=== PATIENT | male | born 1995 | race Caucasian/White ===

== ENCOUNTER 2023-03-30 11:48 | Emergency (ER) | payer MEDICAID ==
[~2023-03-30] VITALS: Ht 160 cm; Wt 92.1 kg
[2023-03-30 11:56] VITALS: BP_SYST 116
--- NOTE | 2023-03-30 11:59 | NUR ---
Patient to ER bed 03 to gown for evaluation. Side rails up.
[2023-03-30] MEDS ORDERED: AUG875 PO (12:00)
--- NOTE | 2023-03-30 12:00 | NUR ---
Pt brought by self, A&Ox4, pt presents to ER with persistent sore throat, states he took azithromycin for 3 days since he had some at home, skin pink and warm, cap refill <3, VSS.
[2023-03-30 12:04] VITALS: BP_SYST 116
--- NOTE | 2023-03-30 12:05 | NUR ---
Dr Torres evaluating patient at bedside
--- NOTE | 2023-03-30 12:06 | NUR ---
Patient given written and verbal discharge instructions and verbalizes understanding. ER MD discussed with patient the results and treatment provided. Patient in stable condition. ID arm band removed. Rx of Augmentin given. Patient educated on pain management and to follow up with PMD. Pain Scale 2/10 Opportunity for questions provided and answered. Medication side effect fact sheet provided.
== END 2023-03-30 12:06 | disposition home or self-care (01) ==
LOC: SED 11:48
DX: J02.9 Acute pharyngitis, unspecified (principal); R05.9 Cough, unspecified; R50.9 Fever, unspecified; Z79.899 Other long term (current) drug therapy
CPT/HCPCS: 99283

== ENCOUNTER 2023-09-08 09:28 | Emergency (ER) | payer MEDICAID ==
[~2023-09-08] VITALS: Ht 190.5 cm; Wt 83.9 kg
[2023-09-08 09:28] VITALS: BP_SYST 147; PULSE 75; RESP 18; TEMP 97.6; O2SAT 99
[~2023-09-08 09:28] MED LIST: AUG875 PO
[2023-09-08] MEDS ORDERED: IBUPROFEN 600 MG TABLET PO ONE (10:00)
[2023-09-08] MEDS ORDERED: TRAM50TA2 PO (10:32)
[2023-09-08] MEDS ORDERED: NAPR-688 PO (10:40)
[2023-09-08 11:04] VITALS: BP_SYST 124; PULSE 69; RESP 13; TEMP 97.6; O2SAT 100
== END 2023-09-08 11:03 | disposition home or self-care (01) ==
LOC: SED 09:28
DX: S39.012A Strain of muscle, fascia and tendon of lower back, initial encounter (principal); S16.1XXA Strain of muscle, fascia and tendon at neck level, initial encounter; Z79.899 Other long term (current) drug therapy; V89.0XXA Person injured in unspecified motor-vehicle accident, nontraffic, initial encounter; Y93.89 Activity, other specified; Y92.89 Other specified places as the place of occurrence of the external cause; Y99.8 Other external cause status
CPT/HCPCS: 72100-TC; 99283

== ENCOUNTER 2024-01-13 08:12 | Emergency (ER) | payer MEDICAID, OTHER ==
[~2024-01-13] VITALS: Ht 190.5 cm; Wt 82.6 kg
[~2024-01-13 08:12] MED LIST changes: +NAPR-688 PO; +TRAM50TA2 PO
[2024-01-13 08:20] VITALS: BP_SYST 107; PULSE 57; RESP 16; TEMP 96.9; O2SAT 99
[2024-01-13] MEDS ORDERED: ZIT250 PO (08:56)
[2024-01-13] MEDS ORDERED: BENZ1LOZ73 PO (08:56)
[2024-01-13 09:39] VITALS: BP_SYST 115; PULSE 45; RESP 11; TEMP 97.1; O2SAT 99
== END 2024-01-13 09:40 | disposition home or self-care (01) ==
LOC: SED 08:12
DX: K12.2 Cellulitis and abscess of mouth (principal); Z79.899 Other long term (current) drug therapy
CPT/HCPCS: 99283